=== PATIENT | female | born 1980 | race Caucasian/White ===

== ENCOUNTER 2018-02-26 07:30 | Emergency (ER) | payer OTHER ==
[2018-02-26 08:05] VITALS: BP 136/83
--- NOTE | 2018-02-26 08:35 | ED ---
Upper Extremity Pain - HPI Summary HPI Summary: 37F presents with right wrist pain for the past two days. 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 She unsure what position wrist landed. She has pain over palmar aspect of wrist. she admits to occasionally numbness and tingling in her 2-3 finger. She states pain hurts worst when tries to type. no previous injury to the area. She is right handed. - History of Current Complaint Chief Complaint: UCUpperExtremity Stated Complaint: WRIST INJURY Time Seen by Provider: 02/26/18 08:23 Hx Last Menstrual Period: does not get period - nexplanon - Allergies/Home Medications Allergies/Adverse Reactions: Allergies Allergy/AdvReac Type Severity Reaction Status Date / Time Hydromorphone Allergy Severe See Comment Verified 02/26/18 07:51 [From Dilaudid] hydroxychloroquine Allergy Hives Verified 02/26/18 07:51 [From Plaquenil] BANANAS Allergy Severe Anaphylatic Uncoded 02/26/18 07:51 Shock Home Medications: Home Medications Cetirizine* [ZyrTEC 10 MG TAB*] 10 mg PO DAILY 02/26/18 [History Confirmed 02/26] EPINEPHrine [Epipen 2-Lucien] 0.3 mg IM ONCE 02/26/18 [History Confirmed 02/26/18] Etonogestrel [Nexplanon] 68 mg IMPLANT DAILY 02/26/18 [History Confirmed ] Folic Acid TAB* [Folvite TAB*] 1 mg PO DAILY 02/26/18 [History Confirmed ] Methotrexate Sodium/Pf [Methotrexate 200 mg/8 ml Vial] 50 mg IJ WEEKLY 02/26/18 [History Confirmed 02/26/18] Sertraline* [Zoloft*] 50 mg PO BEDTIME 02/26/18 [History Confirmed 02/26/18] hydrOXYzine HCL TAB* [Atarax TAB 50 MG *] 50 mg PO BEDTIME PRN 02/26/18 [ History Confirmed 02/26/18] PMH/Surg Hx/FS Hx/Imm Hx Endocrine/Hematology History: Denies: Hx Diabetes, Hx Thyroid Disease Cardiovascular History: Denies: Hx Hypertension Respiratory History: Denies: Hx Asthma, Hx Chronic Obstructive Pulmonary Disease (COPD) GI History: Denies: Hx Ulcer - Surgical History Surgery Procedure, Year, and Place: appendectomy 2002, wisdom teeth 1998 Infectious Disease History: Yes Infectious Disease History: Reports: Hx Clostridium Difficile - 2006 Denies: Hx Hepatitis, Hx Human Immunodeficiency Virus (HIV), Traveled Outside the [place] in Last 30 Days - Family History Known Family History: Positive: Hypertension - Social History Alcohol Use: Rare Substance Use Type: Reports: None Smoking Status (MU): Never Smoked Tobacco Review of Systems Negative: Fever Negative: Chest Pain Negative: Shortness Of Breath Positive: Myalgia - right wrist pain All Other Systems Reviewed And Are Negative: Yes Physical Exam Triage Information Reviewed: Yes Vital Signs On Initial Exam: Initial Vitals Temp Pulse Resp BP Pulse Ox 96.9 F 99 18 136/83 98 02/26/18 07:57 02/26/18 07:57 02/26/18 07:57 02/26/18 07:57 02/26/18 07:57 Vital Signs Reviewed: Yes Appearance: Positive: Well-Appearing Skin: Positive: Warm, Dry Head/Face: Positive: Normal Head/Face Inspection Eyes: Positive: Normal, Conjunctiva Clear ENT: Positive: Pharynx normal Respiratory/Lung Sounds: Positive: Clear to Auscultation, Breath Sounds Present Cardiovascular: Positive: Normal, RRR Musculoskeletal: Positive: Strength/ROM Intact - right wrist, pain with extension, Other - tenderness over palmar wrist, good pulses, capillary refill< 2 secs, sensation grossly intact, neg tinels and phalens Neurological: Positive: Normal Psychiatric: Positive: Normal Diagnostics - Vital Signs Vital Signs Temp Pulse Resp BP Pulse Ox 02/26/18 07:57 96.9 F 99 18 136/83 98 - Laboratory Lab Statement: Any lab studies that have been ordered have been reviewed, and results considered in the medical decision making process. - Radiology wrist Xray Interpretation: No Acute Changes Radiology Interpretation Completed By: Radiologist Course/Dx - Course Course Of Treatment: 37F presents with right wrist pain for the past two days. 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 She unsure what position wrist landed. She has pain over palmar aspect of wrist. she admits to occasionally numbness and tingling in her 2-3 finger. She states pain hurts worst when tries to type. no previous injury to the area. She is right handed. on exam tenderness palmar aspect of right wrist. neg snuff box. neurovascular intact. xray shows no fracture but shows nonfocal soft tissue swelling. will treat with RICE. will have establish care with primary as blood pressure is elevated at this visit. will have follow up with ortho if no improvement. patient understand and agrees with plan. - Diagnoses Differential Diagnosis/HQI/PQRI: Positive: Fracture (Closed), Strain, Sprain Provider Diagnoses: Right wrist pain Discharge - Sign-Out/Discharge Documenting (check all that apply): Discharge/Admit/Transfer - Discharge Plan Condition: Good Disposition: HOME Patient Education Materials: Wrist Sprain (ED) Referrals: [facility] [place] PHYSICIAN REFERRAL [Outside] Franklin Cunningham MD [Medical Doctor] - Additional Instructions: Take Tylenol or ibuprofen every 6 hours as needed for pain Apply ice, rest, elevate Follow up with primary care physician within 5 days or ortho if no improvement Return to ED if develop any new or worsening symptoms - Billing Disposition and Condition Condition: GOOD Disposition: HOME
--- NOTE | 2018-02-26 09:03 | RAD ---
Indication: RIGHT side wrist pain after potential repetitive use injury. Comparison: No relevant prior exams available on the [facility] [facility] for comparison. Technique: AP, lateral, and oblique views RIGHT wrist. Report: Negative for fracture. Soft tissue edema about the wrist without focal soft tissue contour abnormality. Normal articular alignment and preserved joint spaces. No compelling osseous erosions evident. Negative for periarticular osteopenia. IMPRESSION: Nonfocal soft tissue swelling without additional finding.
== END 2018-02-26 09:10 | disposition home or self-care (01) ==
LOC: UCEAST 07:30
DX: Z88.5 Allergy status to narcotic agent (principal); Z88.8 Allergy status to other drugs, medicaments and biological substances; Z91.018 Allergy to other foods; M25.531 Pain in right wrist
CPT/HCPCS: 99212; G0463